=== PATIENT | male | born 1980 | race African-American/Black ===

== ENCOUNTER 2024-02-16 06:46 | Emergency (ER) | payer SELFPAY | END 2024-02-16 08:30 | disposition home or self-care (01) | LOC: MW.ED 06:46 | DX: T33.521A Superficial frostbite of right hand, initial encounter (principal); T33.531A Superficial frostbite of right finger(s), initial encounter; X31.XXXA Exposure to excessive natural cold, initial encounter | CPT/HCPCS: 99283 ==

== ENCOUNTER 2024-02-18 10:11 | Emergency (ER) | payer OTHER | END 2024-02-18 12:26 | disposition home or self-care (01) | LOC: MW.ED 10:11 | DX: T33.521A Superficial frostbite of right hand, initial encounter (principal); X31.XXXA Exposure to excessive natural cold, initial encounter | CPT/HCPCS: 99283 ==